=== PATIENT | female | born 1975 | race Caucasian/White ===

== ENCOUNTER 2018-04-26 15:59 | Emergency (ER) | payer OTHER ==
[~2018-04-26] VITALS: Ht 170.2 cm; Wt 79.4 kg
[~2018-04-26 15:59] MED LIST: ACET325; ALBU90OI INH; Bactrim Ds Tab1 EACH PO; CLIN300 PO; HYDACE5 PO; HYDGUAL120 PO; MULVITMINE; Pyridium200 MG PO; RXCLIN PO; RXHYDACE PO
== END 2018-04-26 16:55 | disposition home or self-care (01) ==
LOC: ER 15:59
DX: S71.111A Laceration without foreign body, right thigh, initial encounter (principal); Z23 Encounter for immunization; Z88.0 Allergy status to penicillin; Z88.5 Allergy status to narcotic agent; W25.XXXA Contact with sharp glass, initial encounter
CPT/HCPCS: 90714; 96372; 99282

== ENCOUNTER 2020-02-11 17:20 | Emergency (ER) | payer OTHER ==
[~2020-02-11] VITALS: Ht 170.2 cm; Wt 71.7 kg
[2020-02-11] MEDS ORDERED: Amoxicillin500 MG PO (17:59)
[2020-02-11] MEDS ORDERED: ONDA4ODT MM (17:59)
[2020-02-11] MEDS ORDERED: HYDR1TAB94 PO (17:59)
== END 2020-02-11 18:16 | disposition home or self-care (01) ==
LOC: ER 17:20
DX: K04.7 Periapical abscess without sinus (principal); K02.9 Dental caries, unspecified; Z88.0 Allergy status to penicillin; Z88.5 Allergy status to narcotic agent
CPT/HCPCS: 99282

== ENCOUNTER → 2020-06-26 | Outpatient (CLI) | payer OTHER ==
[~2020-06-26] MED LIST changes: +Amoxicillin500 MG PO; +HYDR1TAB94 PO; +ONDA4ODT MM
== END ==
LOC: LAB SHORT 15:15 → LAB EV 15:15
PROVIDERS: Physician Assistant Medical
DX: N93.9 Abnormal uterine and vaginal bleeding, unspecified (principal)
CPT/HCPCS: 87070; 87205; 88175

== ENCOUNTER 2020-12-05 07:46 | Emergency (ER) | payer OTHER ==
[~2020-12-05] VITALS: Ht 170.2 cm; Wt 72.1 kg
[2020-12-05 09:05] LABS: BASOPHILS ABSOLUTE AUTO 0.08 K/mm3 (0.00-0.23); BASOPHILS PERCENT AUTO 2 % (0-2); EOSINOPHILS PERCENT AUTO 4 % (0-6); Hematocrit 37.4 % (33.0-51.0); Hemoglobin 12.5 g/dL (11.5-16.0); IMMATURE GRAN PERCENT AUTO 0 % (0-1); LYMPHOCYTES ABSOLUTE AUTO 1.71 K/mm3 (0.84-5.20); LYMPHOCYTES PERCENT AUTO 35 % (21-46); MONOCYTES ABSOLUTE AUTO 0.42 K/mm3 (0.16-1.47); MONOCYTES PERCENT AUTO 9 % (4-13); Mean Corpuscular HGB 30.3 pg (26.0-34.0); Mean Corpuscular HGB Conc 33.4 g/dL (31.5-36.5); Mean Corpuscular Volume 91 fL (80-100); Mean Platelet Volume 10.6 fL (9.1-12.4); NEUTROPHILS ABSOLUTE AUTO 2.48 K/mm3 (1.96-9.15); NEUTROPHILS PERCENT AUTO 51 % (41-73); Platelet Count 208 K/mm3 (150-400); RDW Coefficient Variation 11.9 % (11.7-14.2); RDW Standard Deviation 39.8 fL (35.1-46.3); Red Blood Cell Count 4.12 M/mm3 (3.80-5.20); White Blood Cell Count 4.89 K/mm3 (4.00-11.30)
[2020-12-05 09:08] LABS: Anion Gap 5 mmol/L (6-16); Blood Urea Nitrogen 14 mg/dL (8-24); Bun/Creatinine Ratio 17.2 (12.0-20.0); CO2, Blood 28 mmol/L (21-32); Calcium, Blood 8.6 mg/dL (8.5-10.1); Chloride, Blood 110 mmol/L (98-108); Creatinine, Blood 0.81 mg/dL (0.40-1.00); Glomerular Filtration Rate >60 (60-); Glucose, Blood 95 mg/dL (70-99); Potassium, Blood 3.1 mmol/L (3.5-5.5); Sodium, Blood 143 mmol/L (136-145)
== END 2020-12-05 10:18 | disposition home or self-care (01) ==
LOC: ER 07:46
PROVIDERS: Emergency Medicine
DX: N93.8 Other specified abnormal uterine and vaginal bleeding (principal); Z88.0 Allergy status to penicillin; Z88.5 Allergy status to narcotic agent
CPT/HCPCS: 36415; 80048; 84703; 85025; 99283; A9270

== ENCOUNTER → 2021-07-04 | Outpatient (CLI) | payer OTHER | END | disposition home or self-care (01) | LOC: LAB SHORT 08:00 | DX: N92.0 Excessive and frequent menstruation with regular cycle (principal) | CPT/HCPCS: 88305 ==

== ENCOUNTER → 2021-12-06 | Outpatient (CLI) | payer OTHER ==
[~2021-12-06] MED LIST changes: +IRON SUPPLEMENTS
[2021-12-06 18:38] LABS: Source, Urine Voided
[2021-12-06 20:00] LABS: Appearance, Urine Clear (Clear); Bilirubin, Urine Neg (Neg); Blood, Urine 1+ (Neg); Color, Urine Yellow (P-Yellow); Glucose Qualitative, Urine Neg (Neg); Ketones, Urine Neg (Neg); Leukocyte Esterase, Urine Neg (Neg); Nitrite, Urine Neg (Neg); Protein, Urine Neg (Neg); Urobilinogen, Urine NORM (Normal)
[2021-12-06 21:11] LABS: Bacteria Rare /hpf; Red Blood Cells, Urine 0-2 /hpf (0-2); Squamous Epithelial Cells Few /hpf (Few); White Blood Cells, Urine 0-2 /hpf (0-5)
== END | disposition home or self-care (01) ==
LOC: LAB SHORT 12:00 → LAB 12:00
PROVIDERS: Obstetrics & Gynecology
DX: Z01.812 Encounter for preprocedural laboratory examination (principal)
CPT/HCPCS: 81001

== ENCOUNTER 2021-12-17 06:05 | Day surgery (SDC) | payer OTHER ==
[~2021-12-17] VITALS: Ht 174 cm; Wt 82.5 kg
--- NOTE | 2021-12-17 07:15 | NUR ---
Ambulatory in Day Surgery History, Chart, Medications and Allergies reviewed before start of procedure.Patient confirms NPO status and agrees with scheduled surgery. Patient reports completing Chlorhexadine shower X2 prior to admission to hospital.Surgical site prepped with 2% Chlorhexidine cloth wipe.
--- NOTE | 2021-12-17 12:00 | NUR ---
PATIENT ARRIVE TO ROOM #205 AT THIS TIME, VIA [facility]. PATIENT SLEEPY , NO C/O PAIN OR NAUSEA. SATS 98% ON RA. SBP 95, LINDO PATENT DRAINING DANIELLE/PINK URINE. IVF INFUSED, TEXT TO SURGEON FOR FLUID ORDERS IF NEEDED. PATIENT SLEEPING AT THIS TIME, AT BEDSIDE, CALL LIGHT IN REACH. [facility] CARE GIVEN AFTER TRANSFER FROM [facility] TO BED DUE TO SOME SEROUSANG DRAINAGE. [facility] PAD CHANGED. (SMALL AMENRIQUE).
--- NOTE | 2021-12-17 17:50 | NUR ---
PT. AWAKE TAKING PO CRACKERS AND TOLERATE JELLO. OXYCODONE 5MG GIVEN EARLIER FOR PAIN AND VERBALIZE RELIEF. REGLAN GIVEN FOR SLIGHT NAUSEA AND PT. DID ATTEMPT DINNER, HAD SMALL EMESIS, ZOFRAN GIVEN. AT THIS TIME VERBALIZE COMFORT WITH NO FURTHER NAUSEA, ZOFRAN EFFECTIVE. VERBAL TEACHING DONE AND DISCUSSION ABOUT CATHETER CARE AT HOME AND HOW A CATHETER WORKS. DISCUSSION AND DIAGRAM HELPFUL AND FUTHER HANDS ON TEACHING TO BE DONE IN MORNING. SUPPLIES (LEG BAG, CAPS) AT BEDSIDE AND FURHTER TEACHING TO BE DONE PRIOR TO DISCHARGE.
--- NOTE | 2021-12-18 09:13 | NUR ---
LINDO CATH CARE AND LEG BAG TEACHING DONE. DEMONSTRATION ON REMOVING NOC BAG AND ATTACHING LEG BAG DONE. SUPPLIES GIVEN TO PATIENT AND PT. AND VERBALIZE COMFORT IN LINDO CARE, VERBALIZE UNDERSTANDING OF LINDO TEACHING. LEG BAG ON AT THIS TIME FOR IMPENDING DISCHARGE.
--- NOTE | 2021-12-18 10:00 | NUR ---
PT. STATES DRIBBLED A LITTLE WHEN SITTING ON TOILET. LINDO W LEG BAG INTACT AND DRAINING. NOTED SCANT AMOUNT OF URINE IN HAT. ADDED 5CC TO LINDO BULB, PT. DENIES ANY DISCOMFORT. DISCHARGE INSTRUCTIONS REVIEWED AGAIN WITH PATIENT AND REVIEWED LINDO CARE. VERBALIZE UNDERSTANDING . HERE TO TAKE PT. HOME. W/C TO EXIT WITH BELONGINGS, INSTRUCTIONS, AND LINDO SUPPLIES.
--- NOTE | 2021-12-18 13:39 | NUR ---
12/18/21 1339 Latasha Carrera VERIFICATIONS: EDIT CHART.
== END 2021-12-18 10:07 | disposition home or self-care (01) ==
LOC: ORSCMMR 06:05 → SURS 06:05 → ORD 07:30 → ORSCMMR 07:30 → ORD 10:30 → SURS 12:05 → ORSCMMR 12-18 10:07 → SURS 12-18 10:07
PROVIDERS: Obstetrics & Gynecology
PROC: 0UT7FZZ Resection of Bilateral Fallopian Tubes, Via Natural or Artificial Opening With Percutaneous Endoscopic Assistance (ICD-10-PCS; principal; 2021-12-17 07:30)
PROC: 0UT9FZZ Resection of Uterus, Via Natural or Artificial Opening With Percutaneous Endoscopic Assistance (ICD-10-PCS; principal; 2021-12-17 07:30)
DX: N92.0 Excessive and frequent menstruation with regular cycle (principal); J45.909 Unspecified asthma, uncomplicated; F41.8 Other specified anxiety disorders; Z79.899 Other long term (current) drug therapy; Z87.891 Personal history of nicotine dependence
CPT/HCPCS: 36415; 86850; 86900; 86901; 88307; A9270; J0171; J0690; J1100; J1885; J2250; J2405; J2704; J3010; J7120; Q9968

== ENCOUNTER 2022-03-26 01:29 | Emergency (ER) | payer OTHER ==
[~2022-03-26] VITALS: Ht 170.2 cm; Wt 86.2 kg
== END 2022-03-26 04:40 | disposition home or self-care (01) ==
LOC: ER 01:29
DX: U07.1 COVID-19 (principal); Z88.0 Allergy status to penicillin; Z88.5 Allergy status to narcotic agent
CPT/HCPCS: 99283

== ENCOUNTER → 2025-06-22 | Outpatient (CLI) | payer OTHER | LOC: LAB SHORT 10:30 → LAB 10:30 | DX: R31.9 Hematuria, unspecified (principal) | CPT/HCPCS: 87077; 87086; 87186 ==